=== PATIENT | female | born 1985 | race Caucasian/White ===

== ENCOUNTER 2018-02-28 11:56 | Inpatient (IN) ==
[2018-02-28] MEDS ORDERED: Naloxone 0.4 MG/ML INJ IVP PRN (12:22)
[2018-02-28] MEDS ORDERED: Famotidine 20 MG/2 ML VIAL IVP PRN (12:22)
[2018-02-28] MEDS ORDERED: *HR* Nalbuphine 10 MG/ML AMPUL IVP PRN (12:22)
[2018-02-28] MEDS ORDERED: Penicillin G Potassium 5,000,000 UNIT in 0.9 % Sodium Chloride Mini Bag 100 ML IVPB ONE (12:24)
[2018-02-28] MEDS ORDERED: Metoclopramide 10 MG/2 ML VIAL IVP PRN (12:24)
[2018-02-28] MEDS ORDERED: Lidocaine 1% 20 ML MDV INFILT PRN (12:24)
[2018-02-28] MEDS ORDERED: Ringers Solution, Lactated 1,000 ML IVC SCH (12:30)
[2018-02-28] MEDS ORDERED: miSOPROStol 25 MCG TABLET PO PRN (13:01)
[2018-02-28 13:04] LABS: Basophils % 0.3 %; Eosinophils # 0.2 K/mcL (0.0-0.6); Hematocrit 37.7 % (35.3-44.9); Hemoglobin 13.2 g/dL (11.5-15.4); Immature Granulocytes % 1.2 % (0-4); Lymphocytes # 1.5 K/mcL (0.6-4.6); Lymphocytes % 14.3 %; Mean Corpuscular Hemoglobin 31.4 pg (28.0-33.3); Mean Corpuscular Volume 89.5 fL (83.0-100.0); Mean Platelet Volume 10.5 fL (9.4-12.4); Monocytes % 9.7 %; Neutrophils # 7.7 K/mcL (1.6-8.9); Platelet Count 229 K/mcL (140-400); Red Blood Count 4.21 M/mcL (3.82-4.97); Red Cell Distribution Width 13.2 % (11.5-14.5); Segmented Neutrophils % 72.5 %
--- NOTE | 2018-02-28 13:05 | OB/GYN History & Physical ---
Date of Encounter: 02/28/18 Time of Encounter: 11:15 Assessment and Plan (1) 41 weeks gestation of Current visit: Yes Status: Acute (2) Hypertension affecting in third trimester Current visit: Yes Status: Acute PIH labs ordered. Patient will be induced due to postdates and this hypertension (3) GBS (group B streptococcus) infection Current visit: Yes Status: Acute PCN IV History of Present Illness Chief complaint: Induction of labor HPI: Ms. Barber is a 32 year old female G 4 P 2-0-1-2 at 41 2/7 weeks presented to the office today for NST. She reported increased abdominal cramping. She denies any leaking fluid or vaginal bleeding. She reports good movement. Past Med Surg Social Fam HX - Past Medical History Source: patient Medical history: no medical history Psychiatric history: no psych history - Past Surgical History Surgical History: other Additional surgical history: D&C, laproscopy - Social History Smoking Status: Never smoker Smokeless Tobacco Status: No Alcohol use: rarely Drug use: none - Family History Mother Living Status: Still Living Hx Family Cardiac Disorders: Yes (HTN) Hx Family Respiratory Disorders: No Hx Family Cancer: No Hx Family GI Disorders: No Hx Family Genitourinary Disorders: No Hx Family Endocrine Disorder: No Hx Family Musculoskeletal Disorders: No Hx Family Neuromuscular Disorders: No Hx Family Neurologic Disorders: No Hx Family HEENT Disorders: No Hx Family Autoimmune Disorders: No Hx Family Reproductive Disorders: No Hx Family Psychosocial Disorders: No Hx Family Medical Disorders: No Obstetrical History - Pregnancies : 4 Para: 2 Term: 2 : 0 Ab's: 1 Livin Medications and Allergies Pnv No.122/Iron/Folic Acid [ Multi Tablet] 1 each PO DAILY 02/28/18 [ History] Pseudoephedrine HCl [Sudafed] 30 mg PO Q4HR PRN 02/28/18 [History] 3 Allergy/AdvReac Type Severity Reaction Status Date / Time No Known Allergies Allergy Verified 06/08/17 14:58 Review of System OB ROS unobtainable: due to endotracheal tube - Constitutional Constitutional ROS IM: as per HPI Exam - Constitutional Constitutional: well developed, well nourished, no acute distress, average body habitus - HEENT HEENT: EOMI - Neck Neck exam: full ROM - Lungs Respiratory exam: CTAB - Cardiovascular Cardiovascular exam: RRR - Abdomen Abdomen: Present: bowel sounds normal, gravid, non tender - Vagina Vagina: Present: normal moisture - Cervix Dilation: 3 Effacement: 50 Station: -2 Results All other labs normal. - VTE Reasons for not Prescribing Prophylaxis: Treatment not Indicated - Low risk for VTE
[2018-02-28 13:23] LABS: Amphetamine Screen,Urine Negative ng/mL (Cutoff=1000); Barbiturate Screen,Urine Negative ng/mL (Cutoff=200); Benzodiazepines Screen,Urine Negative ng/mL (Cutoff=200); Cannabinoid Screen,Urine Negative ng/mL (Cutoff = 50); Cocaine Screen,Urine Negative ng/mL (Cutoff= 300); Opiate Screen,Urine Negative ng/mL (Cutoff=300); Phencyclidine Screen,Urine Negative ng/mL (Cutoff=25)
--- NOTE | 2018-02-28 14:08 | Anesthesia Evaluation PreOp ---
Date of Encounter: 02/28/18 Time of Encounter: 13:52 - Past History Planned Operation: vaginal del, , PIH postdates Cardiac History: HTN Pulmonary History: Denies Any Significant HX COAT AGENT History: Denies Any Significant HX Other Medical History: Denies Any Significant HX Anesthesia History: No Prior Anesthetic Complications, Past Anesthesia Alcohol Use: rarely Drug use: none Medications and Allergies Pnv No.122/Iron/Folic Acid [ Multi Tablet] 1 each PO DAILY 02/28/18 [ History] Pseudoephedrine HCl [Sudafed] 30 mg PO Q4HR PRN 02/28/18 [History] 3 Allergy/AdvReac Type Severity Reaction Status Date / Time No Known Allergies Allergy Verified 06/08/17 14:58 Anesthesia Results - Labs 02/28/18 12:17 Anesthesia Exam - HEENT Pupil (Motor): Pupils equal Mallampati: II Teeth: Normal Oral Opening: Greater than 3 - COAT AGENT LOC: Oriented COAT AGENT Motor: Normal RUE, Normal LUE, Normal RLE, Normal LLE, Normal Face COAT AGENT Sensory: Normal: RUE, LUE, RLE, LLE, Face - Cardiac Rhythm: Regular Murmur: None - Pulmonary Breath Sounds: bilateral Clear Respiratory Effort: Symmetrical Anesthesia Assess/Plan ASA Score: 2 Modified Rough And Ready Scale for Level of Consciousness: Cooperative, oriented, and tranquil Anesthetic Plan: General, Regional Monitoring Plan: Standard Monitors Recovery Plan: PACU
[2018-02-28] MEDS ORDERED: EPHEDrine 50 MG/ML VIAL IVP PRN (14:09)
[2018-02-28] MEDS ORDERED: Epidural Premix (fent/bupiv) 110 ML EP SCH (14:15)
[2018-02-28] MEDS ORDERED: Epidural Premix (fent/bupiv) 110 ML EP ONE (14:16)
[2018-02-28] MEDS ORDERED: Lidocaine -MPF 2% 5 ML VIAL ONE (14:18)
[2018-02-28 15:49] LABS: Protein/Creatinine Ratio,Urine 0.22 mg/mg (0.00-0.20)
[2018-02-28 15:54] LABS: Alanine Aminotransferase 11 Units/L (7-52); Aspartate Amino Transferase 11 Units/L (13-39); BUN/Creatinine Ratio 15 (6-26); Blood Urea Nitrogen 8 mg/dL (6-20); Lactate Dehydrogenase 177 Units/L (140-271); Uric Acid 4.9 mg/dL (2.3-7.6); eGFR For Non-African Americans > 60 (> 60)
[2018-02-28] MEDS ORDERED: Penicillin G Potassium 2,500,000 UNIT in 0.9 % Sodium Chloride 100 ML IVPB SCH (16:00)
--- NOTE | 2018-02-28 18:06 | OB Labor Progress Note ---
Date of Encounter: 02/28/18 Time of Encounter: 18:05 Labor Progress Note - Subjective Subjective: Patient is comfortable after her dose of Nubain. - Cervix Cervix: 4.5/50/-2 cephalic - Heart Tones Heart Tones: 130's, category 1 - [place]: q 1-2 minutes - Interventions Interventions: AROM with IUPC placed without difficulty - Plan Plan: Continue to increase pitocin PRN
[2018-02-28] MEDS ORDERED: Oxytocin 20 units/ LR 1000 mL 20 UNIT/1,000 ML BAG IVC SCH (18:45)
[2018-02-28] MEDS ORDERED: Oxytocin 20 units/ LR 1000 mL 20 UNIT/1,000 ML BAG IVC ONE (18:47)
--- NOTE | 2018-02-28 19:37 | Anesthesia Procedures ---
Date of Encounter: 02/28/18 Time of Encounter: 19:16 Procedures: Anesthesia - Epidural/Spinal Patient ID/Chart reviewed: Yes Patient examined: Yes OB Eval: Gestational age: term OB Eval: : 4 OB Eval: Hx Para: 2 OB Eval: Contractions: Non-stressed pattern Consent Obtained: Yes Supplemental Oxygen: None/Room Air Site Prep: Aseptic Technique, Sterile prep and drape, 0.5% Chlorhexidine/Alcohol Patient position: upright Local Anesthetic: Lidocaine 1% Amount of Local Anesthetic used: 2 Touhy Needle Gauge: 18 Touhy Needle Depth (cm): 7 Catheter Depth at Skin (cm): 11 Test Dose (1.5% Lido + Epi): Volume given (mls): 3 Test Dose Result: Negative Loading Dose: Other: 10ml from solution Loading Dose Administered: Thru Catheter Infusion Med: 0.125% Bupivacaine w/ 2 mcg/ml Fentanyl Infusion Rate (mls/hr): [address]: Tegaderm, Tape Interspace Used: L3-L4 Loss of Resistance (BRI): Yes (saline) Blood: No CSF: No Paresthesia: No Procedure: vss though out procedure, fhr stable per rn's
--- NOTE | 2018-02-28 23:27 | OB/GYN Procedure Note ---
Delivery - Delivery Date: 02/28/18 Provider: Vivian Barrett Intrapartum events: meconium Delivery induction: AROM, oxytocin, misoprostol Delivery monitor: external FHT, external uterine, internal uterine Anesthesia: epidural Quantitated Blood Loss: 400 - (s) Infant A Delivery Date: 02/28/18 Infant Delivery Time: 22:52 Presentation: vertex Position: GALO Route of delivery: Gender: Female Viability: Viable Pounds: 8 Ounces: 4 Weight Gram: 3.75 kg at 1 minute: 6 at 5 mins: 9 Shoulder Dystocia: not encountered Specimens collected: venous cord gases, arterial cord gases (7.25 pH) Placenta: spontaneous Cord: 3 umbilical vessels - Repair Episiotomy: none Laceration Description: Perineal - 2nd Degree - Complications Delivery complications: none Delivery comments: Called to room with patient complete and +2 station. Under maternal effort she delivered a viable female weighing 8 lbs. 4 oz. and Apgars 6 and 9 at one and 5 minutes respectively over second-degree perineal laceration. Following delivery the head there was no nuchal cord encountered. 's shoulders delivered with maternal effort. Infant was placed on mom's abdomen. Cord was clamped and cut with the assistance of the father. was taken to the warmer by the nursing staff. Placenta delivered spontaneously, complete , and intact with a three-vessel cord. Second-degree perineal laceration was repaired using 2-0and 3-0 Vicryl in standard fashion. Mother and recovering in the LDR in stable condition. - Disposition Mom disposition: stable in LDR [place] disposition: stable in LDR
[2018-03-01] MEDS ORDERED: Acetaminophen 325 MG TABLET PO PRN (01:08)
[2018-03-01] MEDS ORDERED: Measles/Mumps/Rubella Vacc 0.5 ML VIAL SQ PRN (01:08)
[2018-03-01] MEDS ORDERED: Oxytocin 20 units/ LR 1000 mL 20 UNIT/1,000 ML BAG IVC SCH (01:08)
[2018-03-01] MEDS: Ibuprofen 600 MG TABLET PO PRN ×2 (03:38→13:35)
[2018-03-01 07:32] LABS: Basophils % 0.2 %; Eosinophils # 0.2 K/mcL (0.0-0.6); Eosinophils % 1.3 %; Hematocrit 29.5 % (35.3-44.9); Immature Granulocytes % 0.8 % (0-4); Lymphocytes # 1.8 K/mcL (0.6-4.6); Lymphocytes % 15.1 %; Mean Corpuscular HGB Conc 34.2 g/dL (31.6-35.5); Mean Corpuscular Hemoglobin 30.3 pg (28.0-33.3); Mean Corpuscular Volume 88.6 fL (83.0-100.0); Mean Platelet Volume 10.5 fL (9.4-12.4); Monocytes # 1.1 K/mcL (0.0-1.3); Platelet Count 201 K/mcL (140-400); Red Blood Count 3.33 M/mcL (3.82-4.97); Red Cell Distribution Width 13.3 % (11.5-14.5); Segmented Neutrophils % 73.6 %
[2018-03-01 07:40] LABS: Hemoglobin 10.1 g/dL (11.5-15.4)
[2018-03-01] MEDS ORDERED: *HR* FentaNYL (PF) 100 MCG/2 ML VIAL ONE (08:18)
[2018-03-01] MEDS ORDERED: *HR* Midazolam HCl 2 MG/2 ML VIAL ONE (08:18)
[2018-03-01] MEDS ORDERED: Ondansetron 4 MG/2 ML VIAL ONE (08:18)
[2018-03-01] MEDS ORDERED: *HR* Rocuronium Bromide 50 MG/5 ML VIAL ONE (08:18)
[2018-03-01] MEDS ORDERED: Lidocaine -MPF 2% 2 ML VIAL ONE (08:18)
[2018-03-01] MEDS ORDERED: *HR* Propofol 200 MG/20 ML VIAL IVP ONE (08:18)
[2018-03-01] MEDS ORDERED: Lidocaine -MPF 4% 5 ML AMPUL ONE (08:21)
[2018-03-01] MEDS ORDERED: Dexamethasone 4 MG/ML VIAL ONE (08:21)
[2018-03-01] MEDS: Prenatal Vit/FA 1 EACH TABLET PO SCH (08:35)
[2018-03-01] MEDS ORDERED: Ringers Solution, Lactated 1,000 ML ONE (11:06)
--- NOTE | 2018-03-01 16:21 | OB/GYN Progress Note ---
Date of Encounter: 03/01/18 Time of Encounter: 16:18 - Assessment and Plan (1) (normal spontaneous vaginal delivery) Current Visit: Yes Status: Acute Doing well s/p . She has been NPO for BPS, however b/c still on add on board she has decided to cancel BPS. Subjective - Subjective Principal diagnosis: s/p with desire for BPS Interval history: Pt s/p . Doing well without c/o. Appropriate pain and lochia. Patient reports: pain well controlled, ambulating normally [place]: doing well Objective - Latest Vital Signs Latest vital signs: Vital Signs Temp Pulse Resp BP Pulse Ox 03/01/18 15:34 16 03/01/18 15:28 97.9 F 76 20 107/70 97 03/01/18 11:30 97.5 F L 80 20 111/74 98 03/01/18 08:13 16 03/01/18 07:47 97.6 F 90 20 117/78 98 03/01/18 03:30 98.3 F 99 20 106/69 97 03/01/18 02:30 98.4 F 94 18 106/69 97 03/01/18 01:30 97.3 F L 109 16 119/76 97 Intake and Output 03/01/18 03/01/18 03/01/18 07:59 15:59 23:59 Intake Total 1000 / 1000 Output Total 2000 / 2000 400 / 400 Balance -1000 / -1000 -400 / -400 Intake: Other 1000 / 1000 Output: Urine 1500 / 1500 400 / 400 Estimated Blood Loss 400 / 400 Catheter 100 / 100 Other: Meal Lunch Percent of Meal Consumed 0% Weight 97.3 kg Patient Weight 03/01/18 23:59 Weight 97.3 kg - Exam Lungs: bilateral: normal Chest: Normal S1, Normal S2 Extremities: Present: normal Abdomen: Present: normal appearance Uterus: Present: normal Uterus Position: 2 Fingers Below Umbilicus - Labs Labs: Laboratory Results - last 24 hr 03/01/18 06:55 WBC 12.2 H RBC 3.33 L Hgb 10.1 L D Hct 29.5 L MCV 88.6 MCH 30.3 MCHC 34.2 RDW 13.3 Plt Count 201 MPV 10.5 Immature Gran % 0.8 Seg Neutrophils % 73.6 Lymphocytes % 15.1 Monocytes % 9.0 Eosinophils % 1.3 Basophils % 0.2 Neutrophils # 9.0 H Lymphocytes # 1.8 Monocytes # 1.1 Eosinophils # 0.2 Basophils # 0.0
[2018-03-02] MEDS: Ibuprofen 600 MG TABLET PO PRN (04:22)
[2018-03-02] MEDS: Prenatal Vit/FA 1 EACH TABLET PO SCH (07:51)
[2018-03-02 08:11] VITALS: BP 110/71
--- NOTE | 2018-03-02 10:24 | Discharge Summary ---
Date of Encounter: 03/02/18 Time of Encounter: 10:23 - Discharge Diagnosis (1) Status post vaginal delivery Priority: Primary Status: Acute Comments: PP milestones met. Pt reports good mood. Plan for BPS PP Discharge home. - Discharge Medications Prescriptions: Ibuprofen [Motrin] 600 mg PO Q6HR PRN #30 tablet PRN Reason: Cramping Docusate [Colace] 100 mg PO BID #60 capsule Home Medications: Pnv No.122/Iron/Folic Acid [ Multi Tablet] 1 each PO DAILY 02/28/18 [ History] Pseudoephedrine HCl [Sudafed] 30 mg PO Q4HR PRN 02/28/18 [History] Acetaminophen [Tylenol] 650 mg PO Q6HR PRN tablet 03/02/18 [Rx] Docusate [Colace] 100 mg PO BID #60 capsule 03/02/18 [Rx] Ibuprofen [Motrin] 600 mg PO Q6HR PRN #30 tablet 03/02/18 [Rx] Allergies/Adverse Reactions: 3 Allergy/AdvReac Type Severity Reaction Status Date / Time No Known Allergies Allergy Verified 06/08/17 14:58 Data Procedures and tests throughout hospitalization: Laboratory Tests 02/28/18 02/28/18 02/28/18 12:10 12:10 12:17 WBC 10.6 RBC 4.21 Hgb 13.2 Hct 37.7 MCV 89.5 MCH 31.4 MCHC 35.0 RDW 13.2 Plt Count 229 MPV 10.5 Immature Gran % 1.2 Seg Neutrophils % 72.5 Lymphocytes % 14.3 Monocytes % 9.7 Eosinophils % 2.0 Basophils % 0.3 Neutrophils # 7.7 Lymphocytes # 1.5 Monocytes # 1.0 Eosinophils # 0.2 Basophils # 0.0 BUN Creatinine Est GFR ( Amer) Est GFR (Non-Af Amer) BUN/Creatinine Ratio Uric Acid AST ALT Lactate Dehydrogenase Urine Creatinine 127 Protein/Creatinin Ratio 0.22 H Urine Total Protein 28 H Urine Opiates Screen Negative Ur Barbiturates Screen Negative Ur Phencyclidine Scrn Negative Ur Amphetamines Screen Negative U Benzodiazepines Scrn Negative Urine Cocaine Screen Negative U Marijuana (THC) Screen Negative Ur Drug Screen Interp See Below 02/28/18 03/01/18 13:00 06:55 WBC 12.2 H RBC 3.33 L Hgb 10.1 L D Hct 29.5 L MCV 88.6 MCH 30.3 MCHC 34.2 RDW 13.3 Plt Count 201 MPV 10.5 Immature Gran % 0.8 Seg Neutrophils % 73.6 Lymphocytes % 15.1 Monocytes % 9.0 Eosinophils % 1.3 Basophils % 0.2 Neutrophils # 9.0 H Lymphocytes # 1.8 Monocytes # 1.1 Eosinophils # 0.2 Basophils # 0.0 BUN 8 Creatinine 0.52 L Est GFR ( Amer) > 60 Est GFR (Non-Af Amer) > 60 BUN/Creatinine Ratio 15 Uric Acid 4.9 AST 11 L ALT 11 Lactate Dehydrogenase 177 Urine Creatinine Protein/Creatinin Ratio Urine Total Protein Urine Opiates Screen Ur Barbiturates Screen Ur Phencyclidine Scrn Ur Amphetamines Screen U Benzodiazepines Scrn Urine Cocaine Screen U Marijuana (THC) Screen Ur Drug Screen Interp Date of admission: 02/28/18 11:56 Primary care physician: Jelena Canales CNP Discharging clinician: Carolin Islas Anticipated date of discharge: 03/02/18 - Patient Status Disposition: Home, Self-Care Condition: Good Functional capacity at discharge: independent ambulation Overall status at discharge: patient is progressing back to baseline - Discharge Instructions Follow Up With: Jelena Canales CNP [Primary Care Provider] - Vivian Barrett DO [Partnered Physician] - - Diet and Activity Activity: increase activity as tolerated Diet: advance to your usual diet Hospital Course Delivery: Episiotomy: none Laceration: 2nd degree Other procedures: none complications: none Discharge diagnosis: post term preg-delivered [place] baby: female Hospital course: - Delivery Date: 02/28/18 Provider: Vivian Barrett Intrapartum events: meconium Delivery induction: AROM, oxytocin, misoprostol Delivery monitor: external FHT, external uterine, internal uterine Anesthesia: epidural Quantitated Blood Loss: 400 - (s) A Infant Delivery Date: 02/28/18 Infant Delivery Time: 22:52 Presentation: vertex Position: GALO Route of delivery: Gender: Female Viability: Viable Pounds: 8 Ounces: 4 Weight Gram: 3.75 kg at 1 minute: 6 at 5 mins: 9 Shoulder Dystocia: not encountered Specimens collected: venous cord gases, arterial cord gases (7.25 pH) Placenta: spontaneous Cord: 3 umbilical vessels - Repair Episiotomy: none Laceration Description: Perineal - 2nd Degree - Complications Delivery complications: none Delivery comments: Called to room with patient complete and +2 station. Under maternal effort she delivered a viable female weighing 8 lbs. 4 oz. and Apgars 6 and 9 at one and 5 minutes respectively over second-degree perineal laceration. Following delivery the head there was no nuchal cord encountered. Infant's shoulders delivered with maternal effort. Infant was placed on mom's abdomen. Cord was clamped and cut with the assistance of the father. Infant was taken to the warmer by the nursing staff. Placenta delivered spontaneously, complete , and intact with a three-vessel cord. Second-degree perineal laceration was repaired using 2-0and 3-0 Vicryl in standard fashion. Mother and recovering in the LDR in stable condition. Time Attestation: Total time spent providing and/or coordinating discharge services: Time Spent: Less than 30 minutes Exam - Constitutional Vitals: Temp Pulse Resp BP Pulse Ox 97.5 F L 76 16 110/71 97 03/02/18 07:30 03/02/18 07:30 03/02/18 07:30 03/02/18 07:30 03/01/18 15:28 General appearance IM: A&O X 3, pleasant, no acute distress, answers questions appropriately - Respiratory Respiratory exam: Present: CTAB - Cardiovascular Cardiovascular exam IM: Present: RRR, +S1, +S2 - GI/Abdominal GI/Abdominal exam IM: normal bowel sounds - Uterus Position: 1 Finger Below Umbilicus, Midline - Extremities Exam Extremities exam IM: Absent: calf tenderness, pedal edema - Neurological Exam Neurological exam: oriented X3
== END 2018-03-02 12:13 | disposition home or self-care (01) | DRG 774 ==
LOC: 1NENULAB 11:56 → 1NENUOBS 03-01 01:07
PROVIDERS: ADMIT Obstetrics & Gynecology; ATTEND Obstetrics & Gynecology

== ENCOUNTER 2021-01-17 19:25 | Inpatient (IN) ==
[2021-01-17] MEDS ORDERED: Ipratropium/Albuterol Neb 3 ML IH ONE (19:47)
[2021-01-17] MEDS ORDERED: Acetaminophen 325 MG TABLET PO ONE (19:47)
[2021-01-17] MEDS ORDERED: 0.9 % Sodium Chloride 1,000 ML IVC ONE (19:48)
[2021-01-17 20:19] LABS: Basophils % 0.3 %; Eosinophils % 0.3 %; Hematocrit 34.3 % (35.3-44.9); Hemoglobin 12.1 g/dL (11.5-15.4); Immature Granulocytes % 0.6 % (0-4); Lymphocytes # 1.1 K/mcL (0.6-4.6); Lymphocytes % 32.5 %; Mean Corpuscular HGB Conc 35.3 g/dL (31.6-35.5); Mean Corpuscular Hemoglobin 31.1 pg (28.0-33.3); Mean Corpuscular Volume 88.2 fL (83.0-100.0); Mean Platelet Volume 9.6 fL (9.4-12.4); Monocytes # 0.2 K/mcL (0.0-1.3); Monocytes % 4.4 %; Neutrophils # 2.1 K/mcL (1.6-8.9); Platelet Count 211 K/mcL (140-400); Red Blood Count 3.89 M/mcL (3.82-4.97); Red Cell Distribution Width 11.9 % (11.5-14.5); Segmented Neutrophils % 61.9 %; White Blood Count 3.4 K/mcL (4.3-11.1)
[2021-01-17 20:29] LABS: INR 1.2; Prothrombin Time 13.5 Seconds (9.4-12.1)
[2021-01-17 20:32] LABS: Activated Partial Thrombo Time 25.8 Seconds (26.0-36.0)
[2021-01-17 20:47] LABS: Alanine Aminotransferase 48 Units/L (7-52); Albumin 3.9 g/dL (3.5-5.7); Albumin/Globulin Ratio 1.1 (1.1-2.2); Alkaline Phosphatase 89 Units/L (34-104); Aspartate Amino Transferase 60 Units/L (13-39); BUN/Creatinine Ratio 17 (6-26); Bilirubin,Direct 0.2 mg/dL (0.0-0.2); Bilirubin,Indirect 0.5 mg/dL (0.0-1.0); Bilirubin,Total 0.7 mg/dL (0.3-1.0); Blood Urea Nitrogen 12 mg/dL (6-20); C-Reactive Protein 82 mg/L (Less than 10); Calcium 8.6 mg/dL (8.6-10.3); Carbon Dioxide 26 mEq/L (23-29); Chloride 100 mEq/L (98-107); Globulin 3.4 g/dL (2.4-3.5); Glucose 116 mg/dL (70-105); Lactate Dehydrogenase 491 Units/L (140-271); Magnesium 1.8 mg/dL (1.6-2.6); Osmolality,Calculated 281 (280-300); Phosphorous 2.3 mg/dL (2.7-4.5); Potassium 3.2 mEq/L (3.5-5.1); Sodium 135 mEq/L (136-145); Total Protein 7.3 g/dL (6.4-8.9); Troponin I < 0.03 ng/mL (< 0.04); eGFR For African Americans > 60 (> 60); eGFR For Non-African Americans > 60 (> 60)
[2021-01-17 20:57] LABS: Ferritin 360 ng/mL (10-120)
[2021-01-17] MEDS ORDERED: Isovue-370 500 ML BOTTLE IVP ONE (21:04)
[2021-01-17 21:25] LABS: VBG HCO3 29 mEq/L (21-27); VBG PCO2 50 mmHg (41-51); VBG PH 7.37 pH Units (7.32-7.42); VBG PO2 22 mmHg (25-50)
[2021-01-17 21:26] LABS: Reactive Lymphocytes Present (Not Present); Smudge Cells Present (Not Present)
[2021-01-17 21:34] LABS: Bacteria,Urine Few per hpf (None-Few); Bilirubin,Urine Negative (Negative); Blood,Urine Moderate (Negative); Clarity,Urine Clear (Clear); Color,Urine Yellow (Yellow); Glucose,Urine (UA) Normal (Normal); Ketones,Urine Negative (Negative); Leukocyte Esterase,Urine Small (Negative); Mucus,Urine Few per lpf (None-Few); Nitrite,Urine Negative (Negative); PH,Urine 6.5 pH Units (5.0-8.0); Protein,Urine 70 mg/dL (Neg-Trace); RBC,Urine 0-3 per hpf (0-3); Specific Gravity,Urine > 1.030 (1.010-1.025); Squamous Epithelial Cell,Urine Few per hpf (None-Few)
[2021-01-17] MEDS ORDERED: methylPREDNISolone 125 MG/2 ML VIAL IVP ONE (21:53)
[2021-01-17] MEDS ORDERED: Ipratropium 1 PUFF INHALER IH PRN (22:11)
[2021-01-17 22:24] LABS: Creatine Kinase 28 Units/L (30-223)
[2021-01-17] MEDS ORDERED: Azithromycin 500 MG in 0.9 % Sodium Chloride 250 ML IVPB SCH (23:00)
[2021-01-18] MEDS ORDERED: Naloxone 0.4 MG/ML INJ IVP PRN (00:32)
[2021-01-18 01:13] LABS: Hematocrit 30.9 % (35.3-44.9); Hemoglobin 10.8 g/dL (11.5-15.4); Mean Corpuscular Hemoglobin 30.9 pg (28.0-33.3); Mean Corpuscular Volume 88.3 fL (83.0-100.0); Mean Platelet Volume 9.9 fL (9.4-12.4); Platelet Count 194 K/mcL (140-400); Red Cell Distribution Width 11.9 % (11.5-14.5); White Blood Count 3.2 K/mcL (4.3-11.1)
[2021-01-18 01:33] LABS: C-Reactive Protein 75 mg/L (Less than 10); Lactate Dehydrogenase 458 Units/L (140-271)
[2021-01-18 01:34] LABS: BUN/Creatinine Ratio 16 (6-26); Blood Urea Nitrogen 10 mg/dL (6-20); Calcium 7.9 mg/dL (8.6-10.3); Carbon Dioxide 25 mEq/L (23-29); Chloride 103 mEq/L (98-107); Glucose 127 mg/dL (70-105); Osmolality,Calculated 281 (280-300); Potassium 3.7 mEq/L (3.5-5.1); Sodium 135 mEq/L (136-145); eGFR For African Americans > 60 (> 60); eGFR For Non-African Americans > 60 (> 60)
[2021-01-18 03:28] LABS: Amphetamine Screen,Urine Negative ng/mL (Cutoff=1000); Barbiturate Screen,Urine Negative ng/mL (Cutoff=200); Benzodiazepines Screen,Urine Negative ng/mL (Cutoff=200); Cannabinoid Screen,Urine Negative ng/mL (Cutoff = 50); Cocaine Screen,Urine Negative ng/mL (Cutoff= 300); Opiate Screen,Urine Negative ng/mL (Cutoff=300); Phencyclidine Screen,Urine Negative ng/mL (Cutoff=25)
[2021-01-18] MEDS ORDERED: *HR* Enoxaparin 40 MG/0.4 ML SYRINGE SQ SCH (06:00)
[2021-01-18] MEDS ORDERED: Acetaminophen 325 MG TABLET PO PRN (08:23)
[2021-01-18] MEDS: Ipratropium 1 PUFF INHALER IH SCH ×5 (10:01→23:45)
[2021-01-18] MEDS: *HR* Enoxaparin 40 MG/0.4 ML SYRINGE SQ SCH (12:20)
[2021-01-19] MEDS: Ipratropium 1 PUFF INHALER IH SCH ×6 (04:06→23:37)
[2021-01-19] MEDS: *HR* Enoxaparin 40 MG/0.4 ML SYRINGE SQ SCH (05:30)
[2021-01-19 06:00] LABS: Basophils % 0.2 %; Hematocrit 30.2 % (35.3-44.9); Hemoglobin 10.3 g/dL (11.5-15.4); Immature Granulocytes % 1.6 % (0-4); Lymphocytes # 0.9 K/mcL (0.6-4.6); Lymphocytes % 15.7 %; Mean Corpuscular HGB Conc 34.1 g/dL (31.6-35.5); Mean Corpuscular Hemoglobin 30.6 pg (28.0-33.3); Mean Corpuscular Volume 89.6 fL (83.0-100.0); Mean Platelet Volume 9.7 fL (9.4-12.4); Monocytes # 0.3 K/mcL (0.0-1.3); Monocytes % 5.8 %; Platelet Count 245 K/mcL (140-400); Red Blood Count 3.37 M/mcL (3.82-4.97); Red Cell Distribution Width 12.1 % (11.5-14.5); Segmented Neutrophils % 76.7 %
[2021-01-19 06:04] LABS: Neutrophils # 4.2 K/mcL (1.6-8.9); White Blood Count 5.5 K/mcL (4.3-11.1)
[2021-01-19 07:08] LABS: Alanine Aminotransferase 35 Units/L (7-52); Albumin 3.5 g/dL (3.5-5.7); Albumin/Globulin Ratio 1.3 (1.1-2.2); Alkaline Phosphatase 75 Units/L (34-104); Aspartate Amino Transferase 32 Units/L (13-39); BUN/Creatinine Ratio 25 (6-26); Bilirubin,Total 0.6 mg/dL (0.3-1.0); Blood Urea Nitrogen 13 mg/dL (6-20); Calcium 8.2 mg/dL (8.6-10.3); Carbon Dioxide 27 mEq/L (23-29); Chloride 104 mEq/L (98-107); Ferritin 276 ng/mL (10-120); Globulin 2.8 g/dL (2.4-3.5); Glucose 116 mg/dL (70-105); Lactate Dehydrogenase 394 Units/L (140-271); Osmolality,Calculated 289 (280-300); Potassium 3.4 mEq/L (3.5-5.1); Sodium 139 mEq/L (136-145); Total Protein 6.3 g/dL (6.4-8.9); eGFR For African Americans > 60 (> 60); eGFR For Non-African Americans > 60 (> 60)
[2021-01-19] MEDS ORDERED: Remdesivir 200 MG in 0.9 % Sodium Chloride 100 ML IVPB ONE (09:35)
[2021-01-20] MEDS: Ipratropium 1 PUFF INHALER IH SCH ×6 (03:53→23:36)
[2021-01-20] MEDS: *HR* Enoxaparin 40 MG/0.4 ML SYRINGE SQ SCH (05:10)
[2021-01-20 05:43] LABS: Basophils % 0.2 %; Eosinophils % 0.2 %; Hematocrit 31.2 % (35.3-44.9); Hemoglobin 10.5 g/dL (11.5-15.4); Immature Granulocytes % 1.9 % (0-4); Lymphocytes % 19.1 %; Mean Corpuscular HGB Conc 33.7 g/dL (31.6-35.5); Mean Corpuscular Hemoglobin 30.2 pg (28.0-33.3); Mean Corpuscular Volume 89.7 fL (83.0-100.0); Mean Platelet Volume 9.7 fL (9.4-12.4); Monocytes # 0.4 K/mcL (0.0-1.3); Monocytes % 6.8 %; Neutrophils # 3.8 K/mcL (1.6-8.9); Platelet Count 321 K/mcL (140-400); Red Blood Count 3.48 M/mcL (3.82-4.97); Red Cell Distribution Width 12.4 % (11.5-14.5); Segmented Neutrophils % 71.8 %; White Blood Count 5.3 K/mcL (4.3-11.1)
[2021-01-20 06:21] LABS: Alanine Aminotransferase 30 Units/L (7-52); Albumin 3.6 g/dL (3.5-5.7); Albumin/Globulin Ratio 1.3 (1.1-2.2); Alkaline Phosphatase 72 Units/L (34-104); Aspartate Amino Transferase 24 Units/L (13-39); BUN/Creatinine Ratio 40 (6-26); Bilirubin,Total 0.6 mg/dL (0.3-1.0); Blood Urea Nitrogen 22 mg/dL (6-20); Calcium 8.3 mg/dL (8.6-10.3); Carbon Dioxide 25 mEq/L (23-29); Chloride 106 mEq/L (98-107); Globulin 2.8 g/dL (2.4-3.5); Glucose 93 mg/dL (70-105); Osmolality,Calculated 293 (280-300); Potassium 3.3 mEq/L (3.5-5.1); Sodium 140 mEq/L (136-145); Total Protein 6.4 g/dL (6.4-8.9); eGFR For African Americans > 60 (> 60); eGFR For Non-African Americans > 60 (> 60)
[2021-01-20] MEDS: Remdesivir 100 MG in 0.9 % Sodium Chloride 100 ML IVPB SCH (10:06)
[2021-01-21] MEDS: Ipratropium 1 PUFF INHALER IH SCH ×3 (04:37→11:44)
[2021-01-21] MEDS: *HR* Enoxaparin 40 MG/0.4 ML SYRINGE SQ SCH (05:07)
[2021-01-21 05:42] LABS: Basophils % 0.2 %; Eosinophils % 0.3 %; Hematocrit 34.5 % (35.3-44.9); Hemoglobin 11.4 g/dL (11.5-15.4); Immature Granulocytes % 1.3 % (0-4); Lymphocytes # 1.1 K/mcL (0.6-4.6); Lymphocytes % 17.4 %; Mean Corpuscular Volume 90.8 fL (83.0-100.0); Mean Platelet Volume 9.6 fL (9.4-12.4); Monocytes # 0.3 K/mcL (0.0-1.3); Monocytes % 5.3 %; Neutrophils # 4.8 K/mcL (1.6-8.9); Platelet Count 400 K/mcL (140-400); Red Cell Distribution Width 12.4 % (11.5-14.5); Segmented Neutrophils % 75.5 %; White Blood Count 6.4 K/mcL (4.3-11.1)
[2021-01-21 05:57] LABS: Alanine Aminotransferase 37 Units/L (7-52); Albumin 3.8 g/dL (3.5-5.7); Albumin/Globulin Ratio 1.2 (1.1-2.2); Alkaline Phosphatase 78 Units/L (34-104); Aspartate Amino Transferase 29 Units/L (13-39); BUN/Creatinine Ratio 32 (6-26); Bilirubin,Total 0.8 mg/dL (0.3-1.0); Blood Urea Nitrogen 20 mg/dL (6-20); Calcium 8.7 mg/dL (8.6-10.3); Carbon Dioxide 27 mEq/L (23-29); Chloride 104 mEq/L (98-107); Globulin 3.2 g/dL (2.4-3.5); Glucose 96 mg/dL (70-105); Lactate Dehydrogenase 368 Units/L (140-271); Osmolality,Calculated 288 (280-300); Potassium 4.1 mEq/L (3.5-5.1); Sodium 138 mEq/L (136-145); eGFR For African Americans > 60 (> 60); eGFR For Non-African Americans > 60 (> 60)
[2021-01-21 06:15] LABS: Ferritin 188 ng/mL (10-120)
[2021-01-21 06:37] VITALS: BP 109/74; PULSE 75; TEMP 98.2
[2021-01-21] MEDS: Remdesivir 100 MG in 0.9 % Sodium Chloride 100 ML IVPB SCH (10:18)
[2021-01-21 11:45] VITALS: O2SAT 95
== END 2021-01-21 12:12 | disposition home or self-care (01) | DRG 177 ==
LOC: EMEROOARM 19:25 → 3BNU 19:25 → SUATTDRO 22:35 → 3BNU 23:26
PROVIDERS: ADMIT Internal Medicine; ATTEND Family Medicine